=== PATIENT | male | born 1980 | race Hispanic/Latino ===

== ENCOUNTER 2018-02-26 16:06 | Emergency (ER) | payer OTHER ==
[2018-02-26 16:18] VITALS: BP 132/86; PULSE 89; RESP 16; TEMP 98.5; O2SAT 100
[2018-02-26] MEDS ORDERED: Tdap Vaccine 0.5 ml Vial (10-64 yrs) IM ONE ×2 (16:43→17:27)
--- NOTE | 2018-02-26 17:42 | ED PDOC ---
HPI: Trauma/Fall - HPI Time Seen by Provider: 02/26/18 16:42 Chief Complaint (Nursing): Abnormal Skin Integrity History Per: Patient History/Exam Limitations: no limitations Onset/Duration Of Symptoms: Hrs (x 2) Location Of Injury: Left: Hand (Laceration to his dorsal aspect of the left 2nd DIP) Additional Complaint(s): Mr. High is a 37 year old male who presents to the ED complaining of finger laceration to his left 2nd digit, onset 2 hours ago. Patient reports he was trying to lift and move a heavy object when he struck his finger at the sharp edge of a marble table which cut the top of the L 2nd finger. Patient is unable to fully extend DIP joint. Denies numbness or other injuries. Patient reports last tetanus shot was more than 5 years ago. PMD: Provider TBArianne Past Medical History Reviewed: Historical Data, Nursing Documentation, Vital Signs Vital Signs: Last Vital Signs Temp 98.5 F 02/26/18 16:13 Pulse 89 02/26/18 16:13 Resp 16 02/26/18 16:13 BP 132/86 02/26/18 16:13 Pulse Ox 100 02/26/18 16:13 - Medical History PMH: No Chronic Diseases - Surgical History Surgical History: No Surg Hx - Family History Family History: States: Unknown Family Hx - Home Medications Home Medications: Ambulatory Orders Medication Instructions Recorded Cephalexin [Keflex] 500 mg PO Q6 #28 capsule 02/26/18 - Allergies Allergies/Adverse Reactions: Allergies Allergy/AdvReac Type Severity Reaction Status Date / Time No Known Allergies Allergy Verified 03/31/16 03:53 Review of Systems ROS Statement: Except As Marked, All Systems Reviewed And Found Negative Musculoskeletal: Positive for: Other (Laceration to his dorsal aspect of the left 2nd DIP.) Neurological: Negative for: Numbness Physical Exam - Reviewed Nursing Documentation Reviewed: Yes Vital Signs Reviewed: Yes - Physical Exam Comments: GENERAL APPEARANCE: Patient is awake, alert, oriented x 3, in no acute distress. SKIN: Warm, dry; (-) cyanosis. LEFT HAND: (+): 2 cm laceration to dorsal aspect of the left 2nd DIP, (+) flexion intact, unable to fully extend at the DIP joint of the left 2nd digit, ( +) distal sensation and cap refill intact. Rest of the digits and hand is without injury. - ECG O2 Sat by Pulse Oximetry: 100 (RA) Pulse Ox Interpretation: Normal Medical Decision Making Medical Decision Making: Time: 16:43 Plan: - Adacel (10-64 years) 0.5 ml IM - Hand Left 2nd Digit X-Ray - Keflex 500 mg PO STAT Time: 17:55 Hand Left 2nd Digit X-Ray : (+) chip fracture to the distal aspect of the L 2nd mid phalanx, (-) dislocation, as read by RADHA Case discussed with Dr. Dykes. Recommends laceration repair by RADHA for now. Then , to put finger in a splint and discharge patient. The wound is L 2nd digit. The wound was copiously irrigated with normal saline. The wound was prepped and draped in the normal sterile fashion. The wound was explored for foreign bodies and none were found. The wound was anesthetised using lidocaine. The edges were reapproximated using 4, 5-0 nylon sutures by RADHA. Bleeding was well controlled and the patient tolerated the procedure well. Orthoglass finger splint applied by RADHA. Neurovascular intact post splint application. Advised to follow up with Hand Specialist in 2 days. Advised to take medication as prescribed. Return to the emergency room at any time for any new or worsening symptoms. Patient states he fully agrees with and understands discharge instructions. States that he agrees with the plan and disposition. Verbalized and repeated discharge instructions and plan. I have given the patient opportunity to ask any additional questions. Hand Left 2nd Digit X-Ray : IMPRESSION: No acute fracture. Possible linear radiopaque foreign body along the ulnar aspect of the 2nd digit at the level of the distal interphalangeal joint, as per radiology reading. XR radiology reading was d/w Dr. Kovacs, recommends no change in current treatment plan, suggest still outpatient follow up in his office for further evaluation. Scribe Attestation: Documented by Miguel Rodriguez, acting as a scribe for Gege Wen PA-C. Provider Scribe Attestation: All medical record entries made by the Scribe were at my direction and personally dictated by me. I have reviewed the chart and agree that the record accurately reflects my personal performance of the history, physical exam, medical decision making, and the department course for this patient. I have also personally directed, reviewed, and agree with the discharge instructions and disposition. Procedures - Time-Out Correct Patient (with visual ID + MR# on ID Band): Yes Correct Procedure: Yes Disposition - Clinical Impression Clinical Impression: Finger laceration involving tendon, Finger fracture - Patient ED Disposition Is Patient to be Admitted: No Counseled Patient/Family Regarding: Studies Performed, Diagnosis, Need For Followup, Rx Given - Disposition Referrals: Carl Kovacs MD [Medical Doctor] - Disposition: Routine/Home Disposition Time: 18:00 Condition: STABLE Additional Instructions: Thank you for letting us take care of you today. You were treated for finger fracture with laceration. The emergency medical care you received today was directed at your acute symptoms. If you were prescribed any medication, please fill it and take as directed. It may take several days for your symptoms to resolve. Return to the Emergency Department if your symptoms worsen, do not improve, or if you have any other problems. Please contact one of the physicians/clinics you have been referred to that are listed on the Patient Visit Information form that is included in your discharge packet. Bring any paperwork you were given at discharge with you along with any medications you are taking to your follow up visit. Our treatment cannot replace ongoing medical care by a primary care provider (PCP) outside of the emergency department. Thank you for allowing the [facility] team to be part of your care today. Prescriptions: Cephalexin [Keflex] 500 mg PO Q6 #28 capsule Instructions: Finger Fracture, Laceration Repair Forms: [employer] (Turkish), [facility] ED School/Work Excuse
--- NOTE | 2018-02-26 17:56 | RAD ---
PROCEDURE: Left Index finger radiographs. HISTORY: trauma 2nd digit COMPARISON: None. TECHNIQUE: AP radiograph of the left hand, as well as spot oblique and lateral images of index finger were obtained. FINDINGS: LEFT INDEX FINGER: No acute fracture. Linear radiopaque structure adjacent to the ulnar aspect of the distal interphalangeal joint, not evident in all views. Possible radiopaque foreign body or bandage material within the wound along the ulnar aspect of the digit. Remainder of the left hand (as seen on the AP view) grossly intact. JOINTS: Normal. SOFT TISSUES: As above. Otherwise unremarkable. OTHER FINDINGS: None. IMPRESSION: No acute fracture. Possible linear radiopaque foreign body along the ulnar aspect of the 2nd digit at the level of the distal interphalangeal joint.
[2018-02-26] MEDS ORDERED: Lidocaine 1% Inj (20ml) IJ ONE (18:02)
== END 2018-02-26 18:38 | disposition home or self-care (01) ==
LOC: H.ER 16:06
DX: S66.321A Laceration of extensor muscle, fascia and tendon of left index finger at wrist and hand level, initial encounter (principal); S62.601A Fracture of unspecified phalanx of left index finger, initial encounter for closed fracture; W22.8XXA Striking against or struck by other objects, initial encounter; Y92.89 Other specified places as the place of occurrence of the external cause

== ENCOUNTER 2018-07-28 13:17 | Emergency (ER) | payer OTHER ==
[2018-07-28 13:40] VITALS: BP 130/84; PULSE 83; RESP 20; TEMP 98.7; O2SAT 98
[2018-07-28] MEDS ORDERED: Albuterol-Ipratrop 3 mg / 0.5 (3 ml) UD INH STA (14:05)
--- NOTE | 2018-07-28 14:09 | ED PDOC ---
HPI: CCC, URI, Sore Throat Time Seen by Provider: 07/28/18 13:45 Chief Complaint (Nursing): Cough, Cold, Congestion Chief Complaint (Provider): Cough History Per: Patient History/Exam Limitations: no limitations Onset/Duration Of Symptoms: Days (x3 weeks) Current Symptoms Are (Timing): Still Present Additional Complaint(s): 38 year old male presents to the ED for evaluation of a cough that started three weeks ago. Patient reports he feels congestion in his chest, but denies fever. He notes taking OTC cough medication with little relief, prompting ED visit today. He states it feels as if phlegm is stuck in chest. PMD: none Past Medical History Reviewed: Historical Data, Nursing Documentation, Vital Signs Vital Signs: Last Vital Signs Temp 98.7 F 07/28/18 13:37 Pulse 83 07/28/18 13:37 Resp 20 07/28/18 13:37 BP 130/84 07/28/18 13:37 Pulse Ox 98 07/28/18 14:26 - Medical History PMH: No Chronic Diseases - Surgical History Surgical History: No Surg Hx - Family History Family History: States: No Known Family Hx - Living Arrangements Living Arrangements: With Family - Social History Current smoker - smoking cessation education provided: Yes (5-6 cigarettes per day) Alcohol: Social Drugs: Denies - Home Medications Home Medications: Ambulatory Orders Medication Instructions Recorded Cephalexin [Keflex] 500 mg PO Q6 #28 capsule 02/26/18 Albuterol HFA [Ventolin HFA 90 1 puff IH ASDIR #1 unit 07/28/18 mcg/actuation (8 g)] Azithromycin [Zithromax] 250 mg PO DAILY #6 tab 07/28/18 Benzonatate 200 mg PO TID PRN #20 capsule 07/28/18 - Allergies Allergies/Adverse Reactions: Allergies Allergy/AdvReac Type Severity Reaction Status Date / Time No Known Allergies Allergy Verified 07/28/18 13:56 Review of Systems ROS Statement: Except As Marked, All Systems Reviewed And Found Negative Constitutional: Negative for: Fever, Chills, Weakness Cardiovascular: Negative for: Chest Pain Respiratory: Positive for: Cough, Other (chest congestion). Negative for: Shortness of Breath Gastrointestinal: Negative for: Nausea, Vomiting Physical Exam - Reviewed Nursing Documentation Reviewed: Yes Vital Signs Reviewed: Yes - Physical Exam Appears: Positive for: Well, Non-toxic, No Acute Distress Head Exam: Positive for: ATRAUMATIC, NORMOCEPHALIC Skin: Positive for: Normal Color. Negative for: Rash Eye Exam: Positive for: Normal appearance ENT: Positive for: Normal ENT Inspection Cardiovascular/Chest: Positive for: Regular Rate, Rhythm Respiratory: Positive for: Wheezing (slight bilateral end expiratory wheezing). Negative for: Respiratory Distress Extremity: Positive for: Normal ROM Neurologic/Psych: Positive for: Alert, Oriented - ECG O2 Sat by Pulse Oximetry: 98 (RA) Pulse Ox Interpretation: Normal - Other Rad CXR X-Ray: Interpreted by Me, Viewed By Me X-Ray Interpretation: no acute finding Nebulizer Treatments/Peak Flow - Duonebs Number of Bronchodilator Doses given?: 1 (duoneb) - Pre/Post Peak Flow Pre Treatment Peak Flow: 350 Post treatment Peak Flow: 350 - Steroid Treatment Steroid: Not Clinically Indicated - Clinical Response Clinical Response: Improved (Peak flow unchanged however patient reports improvement of symptoms status post treatment) Medical Decision Making Medical Decision Making: Time: 1405 Impression: 38 year old male with persistent cough Plan: --CXR --Duoneb x 1 Patient is aware of chest x-ray results. All questions answered. Patient states he feels better after DuoNeb treatment. Prescriptions for Ventolin inhaler Tessalon Perles and Zithromax provided. Advised PMD or clinic follow-up in 2-3 days. Patient is counseled regarding importance of smoking cessation. ~ Scribe Attestation: Documented by Perlita Donaldson, acting as a scribe for Corina Miguel PA-C. Provider Scribe Attestation: All medical record entries made by the Scribe were at my direction and personally dictated by me. I have reviewed the chart and agree that the record accurately reflects my personal performance of the history, physical exam, medical decision making, and the department course for this patient. I have also personally directed, reviewed, and agree with the discharge instructions and disposition. Disposition - Clinical Impression Clinical Impression: Bronchitis - Patient ED Disposition Is Patient to be Admitted: No Counseled Patient/Family Regarding: Studies Performed, Diagnosis, Need For Followup, Rx Given, Smoking Cessation - Disposition Referrals: [facility] [Outside] Disposition: Routine/Home Disposition Time: 15:25 Condition: STABLE Additional Instructions: Take prescription meds as directed. Stop smoking. Follow-up with clinic in 2-3 days or return any time if acutely worse. Prescriptions: Albuterol HFA [Ventolin HFA 90 mcg/actuation (8 g)] 1 puff IH ASDIR #1 unit Azithromycin [Zithromax] 250 mg PO DAILY #6 tab Benzonatate 200 mg PO TID PRN #20 capsule PRN Reason: Cough Instructions: Acute Bronchitis, Quitting Smoking Forms: [facility] (Botswanan)
[2018-07-28] MEDS ORDERED: Albuterol-Ipratrop 3 mg / 0.5 (3 ml) UD ONE (14:19)
--- NOTE | 2018-07-28 15:26 | RAD ---
Date of service: 07/28/2018 HISTORY: cough COMPARISON: No prior. TECHNIQUE: Chest PA and lateral FINDINGS: LUNGS: No active pulmonary disease. PLEURA: No significant pleural effusion identified. No pneumothorax apparent. CARDIOVASCULAR: Normal. OSSEOUS STRUCTURES: No significant abnormalities. VISUALIZED UPPER ABDOMEN: Normal. OTHER FINDINGS: None. IMPRESSION: No active disease.
== END 2018-07-28 15:47 | disposition home or self-care (01) ==
LOC: H.ER 13:17
DX: J40 Bronchitis, not specified as acute or chronic (principal); F17.210 Nicotine dependence, cigarettes, uncomplicated

== ENCOUNTER 2019-01-06 11:46 | Emergency (ER) | payer OTHER ==
[2019-01-06 12:25] VITALS: BP 138/90; PULSE 81; RESP 18; O2SAT 98
[2019-01-06 12:26] VITALS: TEMP 98.3
--- NOTE | 2019-01-06 12:45 | ED PDOC ---
Upper Extremity Pain/Injury Time Seen by Provider: 01/06/19 12:23 Chief Complaint (Nursing): Upper Extremity Problem/Injury Chief Complaint (Provider): Left Hand Injury History Per: Patient History/Exam Limitations: no limitations Onset/Duration Of Symptoms: Hrs (earlier today) Current Symptoms Are (Timing): Still Present Additional Complaint(s): 38 year old male with pmhx of HTN presents to the ED for evaluation of a left hand 2nd digit injury. Patient reports earlier today he was at [employer] when an 80lb bag of concrete fell onto his left hand, causing his hand to hit a palette. He states feeling immediate pain and was concerned about it being broken. 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 up to date PMD: none provided Past Medical History Reviewed: Historical Data, Nursing Documentation, Vital Signs Vital Signs: Last Vital Signs Temp 98.3 F 01/06/19 12:22 Pulse 81 01/06/19 12:22 Resp 18 01/06/19 12:22 BP 138/90 01/06/19 12:22 Pulse Ox 98 01/06/19 12:22 - Medical History PMH: HTN (uncontrolled) Denies: Asthma - Surgical History Surgical History: No Surg Hx - Family History Family History: States: Unknown Family Hx - Home Medications Home Medications: Ambulatory Orders Medication Instructions Recorded Cephalexin [Keflex] 500 mg PO Q6 #28 capsule 02/26/18 Albuterol HFA [Ventolin HFA 90 1 puff IH ASDIR #1 unit 07/28/18 mcg/actuation (8 g)] Azithromycin [Zithromax] 250 mg PO DAILY #6 tab 07/28/18 RX: Benzonatate 200 mg PO TID PRN #20 capsule 07/28/18 RX: Ibuprofen [Motrin Tab] 800 mg PO Q6 PRN 7 Days tab 01/06/19 - Allergies Allergies/Adverse Reactions: Allergies Allergy/AdvReac Type Severity Reaction Status Date / Time No Known Allergies Allergy Verified 07/28/18 13:56 Review of Systems ROS Statement: Except As Marked, All Systems Reviewed And Found Negative Musculoskeletal: Positive for: Hand Pain (left with injury to second digit) Neurological: Negative for: Numbness (or tingling to left hand) Physical Exam - Reviewed Nursing Documentation Reviewed: Yes Vital Signs Reviewed: Yes - Physical Exam Appears: Positive for: No Acute Distress Pulses-Radial (L): 2+ Pulses-Radial (R): 2+ Extremity: Positive for: Normal ROM (with flexion and extension at left hand 2nd digit pip and mcp; decreased ROM with extension at left hand second digit dip), Capillary Refill (less than 2 seconds), Deformity (left hand second digit at dip inflection), Other (left second digit between pip and dip approx. 1cm avulsion with minimal bleeding and no debris/ foreign body noted; 2nd small excoriation closer to pip) Neurologic/Psych: Positive for: Alert, Oriented (x3) - ECG O2 Sat by Pulse Oximetry: 98 (RA) Pulse Ox Interpretation: Normal Medical Decision Making Medical Decision Making: Time: 1235 Initial Impression: left hand injury Initial Plan: --XR left hand --Ibuprofen 600mg PO --Wound cleansed with 100cc saline under pressure. Betadine and non-adherent dressings placed. 1418 XR reviewed by JACKELINE and positive for a possible non-displaced small fracture at the dip of second digit with some joint space loss. Patient to be placed in a finger splint and will be referred to a hand surgeon upon d/c. All questions answered. Additionally, patient informed that if there is any discrepancy in the official XR read, he will be notified. Scribe Attestation: Documented by Perlita Donaldson, acting as a scribe for Vaishnavi Aguilar PA-C. Provider Scribe Attestation: All medical record entries made by the Scribe were at my direction and personall y dictated by me. I have reviewed the chart and agree that the record accurately reflects my personal performance of the history, physical exam, medical decision making, and the department course for this patient. I have also personally directed, reviewed, and agree with the discharge instructions and disposition. Disposition - Clinical Impression Clinical Impression: Fracture, finger, distal phalanx Counseled Patient/Family Regarding: Studies Performed, Diagnosis, Need For Followup - Disposition Referrals: Carl Kovacs MD [Medical Doctor] - Disposition Time: 14:45 Condition: STABLE Additional Instructions: F/u with hand surgeon (Dr. Kovacs) as soon as possible. Take Ibuprofen and Tylenol for the pain. Remove splint to wash finger in 24hrs and then replace dressing and splint DEVONTE. Prescriptions: RX: Ibuprofen [Motrin Tab] 800 mg PO Q6 PRN 7 Days tab PRN Reason: Pain, Moderate (4-7) Instructions: Finger Fracture (DC) Forms: [email or web address] (Finnish), [facility] ED School/Work Excuse Print Language: TAMAZIGHT
--- NOTE | 2019-01-06 14:19 | RAD ---
Date of service: 01/06/2019 PROCEDURE: Left Index finger radiographs. HISTORY: 80lb bag fell onto finger, + deformity COMPARISON: None. TECHNIQUE: AP radiograph of the left hand, as well as spot oblique and lateral images of index finger were obtained. FINDINGS: LEFT INDEX FINGER: Normal left index finger, without fracture or focal lesion. Remainder of the left hand (as seen on the AP view) grossly intact. JOINTS: Normal. SOFT TISSUES: Soft tissue swelling 2nd digit. OTHER FINDINGS: None. IMPRESSION: Soft tissue swelling without acute articular or osseous abnormality.
== END 2019-01-06 15:03 | disposition home or self-care (01) ==
LOC: H.ER 11:46
DX: S62.661A Nondisplaced fracture of distal phalanx of left index finger, initial encounter for closed fracture (principal); W20.8XXA Other cause of strike by thrown, projected or falling object, initial encounter; I10 Essential (primary) hypertension